=== PATIENT | female | born 1990 | race Caucasian/White ===

== ENCOUNTER 2018-01-30 20:36 | Emergency (ER) | payer SELFPAY ==
[2018-01-30 20:57] VITALS: TEMP 98.2; O2SAT 100
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
[2018-01-30 23:08] VITALS: BP 108/72
== END 2018-01-30 23:10 | disposition home or self-care (01) ==
LOC: ER 20:36
DX: S00.93XA Contusion of unspecified part of head, initial encounter (principal); S10.93XA Contusion of unspecified part of neck, initial encounter; S00.11XA Contusion of right eyelid and periocular area, initial encounter; S00.12XA Contusion of left eyelid and periocular area, initial encounter; S90.411A Abrasion, right great toe, initial encounter; R51 Headache; M54.2 Cervicalgia; Y04.0XXA Assault by unarmed brawl or fight, initial encounter; Y07.03 Male partner, perpetrator of maltreatment and neglect

== ENCOUNTER 2018-02-04 10:09 | Emergency (ER) | payer SELFPAY ==
--- NOTE | 2018-02-04 10:40 | ED.PDOC ---
History of Present Illness - General Chief Complaint: Dental/Mouth Stated Complaint: dental pain Time Seen by Provider: 02/04/18 10:37 Source: patient Exam Limitations: no limitations - History of Present Illness Initial Comments: Jennifer Mahmood 28 y/o female came to er with dental pain andsome swelling upper cheeks the last 3 days.No fever no double or blurry vision.No chronic medical problem.Has Dentist appointment Timing/Duration: gradual Severity: moderate EENT Location: dental Prearrival Treatment: no prearrival treatment Presenting Symptoms: see hpi Improving Factors: nothing Worsening Factors: eating Associated Symptoms: facial pain/swelling Allergies/Adverse Reactions: Allergies NO KNOWN ALLERGY Allergy (Verified 02/16/15 12:13) Home Medications: Ambulatory Orders Acetamin W/Cod #3 Tab [Tylenol w/CODEINE #3] 1 ea PO TID PRN #10 tab 02/04/18 Clindamycin HCl 150 mg PO TID 10 Days #30 cap 02/04/18 Review of Systems - Review of Systems Constitutional: States: no symptoms reported EENTM: States: see HPI Respiratory: States: no symptoms reported Cardiology: States: no symptoms reported Gastrointestinal/Abdominal: States: no symptoms reported Genitourinary: States: no symptoms reported Past Medical History (General) - Patient Medical History Hx Seizures: No Hx Stroke: No Hx Dementia: No Hx Asthma: No Hx of COPD: No Hx Cardiac Disorders: No Hx Congestive Heart Failure: No Hx Pacemaker: No Hx Hypertension: No Hx Thyroid Disease: No Hx Diabetes: No Hx Gastroesophageal Reflux: No Hx Renal Disease: No Hx Cancer: No Hx of HIV: No Hx Hepatitis C: No Hx MRSA: No Surgical History: appendectomy - Vaccination History Hx Tetanus, Diphtheria Vaccination: No Hx Influenza Vaccination: No Hx Pneumococcal Vaccination: No Immunizations Up to Date: No - Social History Hx Tobacco Use: Yes Hx Chewing Tobacco Use: No Hx Alcohol Use: No Hx Substance Use: No Hx Substance Use Treatment: No Hx Depression: No Hx Physical Abuse: No Hx Emotional Abuse: No Hx Suspected Abuse: No - Female History Patient is a Female of Child Bearing Age (10 -59 yrs old): Yes Hx Last Menstrual Period: 01/01/18 Patient : No - Triage Comment ED Triage Comment: dental pain Family Medical History - Family History Mother Family History: Unknown Hx Family Asthma: No Hx Family Congestive Heart Failure: No Hx Family Hypertension: No Hx Family Stroke: No Hx Cardiac Disease: No Hx Family Diabetes: No Physical Exam - Physical Exam General Appearance: Alert, Comfortable, No apparent distress Eye Exam: bilateral normal Ear Exam: bilateral ear: auricle normal, canal normal, TM normal Nasal Exam: normal inspection Throat Exam: pharynx normal, other - decayed tooth right first upper molar,w/ gum swelling and tenderness around decayed tooth Progress - Progress Progress: 02/04/18 10:42 Vital Signs - 8 hr 02/04/18 10:24 Temperature 97.5 F L Pulse Rate [ 100 H Brachial] Respiratory 16 Rate Blood Pressure 117/79 [Left Arm] O2 Sat by Pulse 100 Oximetry Departure - Departure Clinical Impression: Dental abscess, Dental caries extending into pulp Time of Disposition: 10:46 Disposition: Discharge to Home or Self Care Condition: Good Departure Forms: ED Discharge - Pt. Copy, Patient Portal Self Enrollment Instructions: DI for Dental Pain, Tooth Decay, Adult, Tooth Decay, Adult (DC) Diet: other - Soft Diet until better Prescriptions: Acetamin W/Cod #3 Tab [Tylenol w/CODEINE #3] 1 ea PO TID PRN #10 tab PRN Reason: Pain Clindamycin HCl 150 mg PO TID 10 Days #30 cap Home Medications: Ambulatory Orders Acetamin W/Cod #3 Tab [Tylenol w/CODEINE #3] 1 ea PO TID PRN #10 tab 02/04/18 Clindamycin HCl 150 mg PO TID 10 Days #30 cap 02/04/18 Additional Instructions: Keep appointment with Dentist on Wednesday.
[2018-02-04] MEDS ORDERED: CLINDAMYCIN HCL CAP 150 MG CAP PO ONE (10:42)
[2018-02-04] MEDS ORDERED: CLINDAMYCIN PHOSPHATE 150 MG/ML VIAL IM ONE (10:42)
[2018-02-04 11:11] VITALS: BP 119/85; TEMP 97.9; O2SAT 98
== END 2018-02-04 11:05 | disposition home or self-care (01) ==
LOC: ER 10:09 → EDSTATUS 10:10 → ER 11:05
DX: K04.7 Periapical abscess without sinus (principal); K02.9 Dental caries, unspecified; Z87.891 Personal history of nicotine dependence

== ENCOUNTER 2018-05-07 19:46 | Emergency (ER) | payer OTHER ==
[2018-05-07 20:02] VITALS: TEMP 99.7
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
[2018-05-07] MEDS ORDERED: ONDANSETRON INJ 4 MG/2 ML VIAL IV ONE (20:42)
[2018-05-07 21:05] VITALS: O2SAT 100
[2018-05-07] MEDS ORDERED: SODIUM CHLORIDE 0.9% 1000ML 1,000 ML IVS ONE (21:12)
[2018-05-07] MEDS ORDERED: PROMETHAZINE HCL INJ 25 MG in SODIUM CHLORIDE 0.9% 50ML 50 ML IVPB ONE (23:02)
[2018-05-07] MEDS ORDERED: SULFA/TRIMETH 800/160 (DS) TAB 1 EA TAB PO ONE (23:04)
[2018-05-07] MEDS ORDERED: PROMETHAZINE HCL INJ 25 MG/ML VIAL ONE (23:09)
[2018-05-07] MEDS ORDERED: SODIUM CHLORIDE 0.9% 50ML 50 ML ONE (23:10)
[2018-05-07 23:31] VITALS: BP 123/76
== END 2018-05-07 23:31 | disposition home or self-care (01) ==
LOC: ER 19:46
DX: K52.9 Noninfective gastroenteritis and colitis, unspecified (principal); N39.0 Urinary tract infection, site not specified; Z90.49 Acquired absence of other specified parts of digestive tract; Z87.891 Personal history of nicotine dependence
CPT/HCPCS: 80053; 80307; 81001; 81025; 83690; 85007; 85025; 87086; A4216; J2405; J2550; J7030

== ENCOUNTER 2020-03-01 07:12 | Emergency (ER) | payer SELFPAY ==
[2020-03-01] MEDS ORDERED: SODIUM CHLORIDE 0.9% 1000ML 1,000 ML IVS ONE (07:15)
[2020-03-01] MEDS ORDERED: ONDANSETRON INJ 4 MG/2 ML VIAL IV ONE (07:15)
--- NOTE | 2020-03-01 07:17 | ED.PDOC ---
History of Present Illness - General Time Seen by Provider: 03/01/20 07:12 Information Source: patient, RN notes reviewed, Vital Signs reviewed, old records Exam Limitations: intoxication - History of Present Illness Initial Comments: 30 yo F comes in with midepigastric abdominal pain n/v. states she started vomiting several hours ago. Drank 3-4 tequila shots last night, also smoked marijuana. no diarrhea, dysuria. not had similar episodes prior. Abdominal Pain Onset Location: epigastric Pain Radiation: no radiation Review of Systems - Review of Systems Constitutional: Denies: chills, fever EENTM: Denies: blurred vision, throat pain, mouth pain Respiratory: Denies: cough, short of breath Cardiology: Denies: chest pain, palpitations Gastrointestinal/Abdominal: States: abdominal pain, nausea, vomiting. Denies: diarrhea Genitourinary: Denies: dysuria, frequency, hematuria Musculoskeletal: Denies: back pain, muscle pain Skin: Denies: rash Neurological: Denies: headache, numbness, paresthesia, tremors, weakness Endocrine: Denies: unexplained weight gain, unexplained weight loss Hematologic/Lymphatic: Denies: blood clots, easy bleeding, easy bruising Past Medical History (General) - Patient Medical History Hx Seizures: No Hx Stroke: No Hx Dementia: No Hx Asthma: No Hx of COPD: No Hx Cardiac Disorders: No Hx Congestive Heart Failure: No Hx Pacemaker: No Hx Hypertension: No Hx Thyroid Disease: No Hx Diabetes: No Hx Gastroesophageal Reflux: No Hx Renal Disease: No Hx Cancer: No Hx of HIV: No Hx Hepatitis C: No Hx MRSA: No Surgical History: appendectomy - Vaccination History Hx Tetanus, Diphtheria Vaccination: No Hx Influenza Vaccination: Yes Hx Pneumococcal Vaccination: No - Social History Hx Tobacco Use: Yes Hx Chewing Tobacco Use: No Hx Alcohol Use: No Hx Substance Use: No Hx Substance Use Treatment: No Hx Depression: No Hx Physical Abuse: No Hx Emotional Abuse: No Hx Suspected Abuse: No - Female History Hx Last Menstrual Period: 12/01/19 Patient : No Family Medical History - Family History Mother Family History: Unknown Hx Family Asthma: No Hx Family Congestive Heart Failure: No Hx Family Hypertension: No Hx Family Stroke: No Hx Cardiac Disease: No Hx Family Diabetes: No Physical Exam - Physical Exam General Appearance: Alert, Comfortable, No apparent distress, Unkempt, Well Developed, Well Hydrated, Well Nourished Eyes, Ears, Nose, Throat Exam: PERRL/EOMI, normal ENT inspection, TMs normal Neck: non-tender, full range of motion, supple, normal inspection Respiratory: chest non-tender, lungs clear, normal breath sounds, no respiratory distress, no accessory muscle use Cardiovascular/Chest: normal peripheral pulses, regular rate, rhythm, no edema, no gallop, no JVD, no murmur Peripheral Pulses: 2+ Gastrointestinal/Abdominal: normal bowel sounds, non tender, soft, no organomegaly, no pulsatile mass Rectal Exam: deferred Back Exam: normal inspection, no CVA tenderness, no vertebral tenderness Extremity: normal range of motion, non-tender, normal inspection, no pedal edema, no calf tenderness, normal capillary refill Neurologic: occ ther II-XII nml as tested, no motor/sensory deficits, alert, normal mood/affect, oriented x 3 Skin Exam: normal color, warm/dry Progress - Progress Progress: 03/01/20 08:25 Partial ddx: CHS, pancreatitis, gallstones, gastritis, ETOH intoxication, substance misuse. patient notes she Smokes weed 2-3x a week. patient given IVF and zofran. grandmother who lives with patient comes into ER 30 minutes after patient with AMS and abdominal pain. Patient tested for CO, which was unremarkable. CT head: no acute pathology, CT abd/pelvis: no acute pathology noted. 03/01/20 09:46 While asleep patients heart rate drops to mid to low 40s, while awake 50-70. grandmother has covid, patient is negative for both flu and covid. - Results/Orders Results/Orders: The data reviewed when caring for this patient included: nurse notes, prior records, etc. The history and assessments from nurses notes were reviewed and considered, and the patient's home medication list was also reviewed and considered. My assessment and the results of testing completed here in the ED were discussed with the patient/family. All questions were answered, and they express understanding of my assessment and the plan. They have been instructed to return if their symptoms worsen, and have been asked to follow up with their primary care physician to recheck today's presenting complaint. Strict return precautions given. I have reviewed medication, benefits, alternatives and side effects. Patient decided to proceed with medication. Katherine Urias DO #[id number] 03/01/20 07:50 Hold Metformin x 48Hrs [id number] 03/01/20 08:15 EKG STAT Laboratory Results WBC 8.2 K/mm3 (4.8-10.8) 03/01/20 07:25 RBC 4.04 M/mm3 (4.20-5.40) L 03/01/20 07:25 Hgb 12.5 gm/dL (12.0-16.0) 03/01/20 07:25 Hct 36.8 % (36.0-47.0) 03/01/20 07:25 MCV 91.2 fl (81.0-99.0) 03/01/20 07:25 MCH 30.9 pg (27.0-31.0) 03/01/20 07:25 MCHC 33.9 g/dL (33.0-37.0) 03/01/20 07:25 RDW 13.7 % (11.5-14.5) 03/01/20 07:25 Plt Count 288 K/mm3 (130-400) 03/01/20 07:25 MPV 8.1 fl (7.40-10.4) 03/01/20 07:25 Absolute Neuts (auto) 6.30 K/uL (1.8-6.8) 03/01/20 07:25 Absolute Lymphs (auto) 1.30 K/uL (1.0-3.4) 03/01/20 07:25 Absolute Monos (auto) 0.60 K/uL (0.2-0.8) 03/01/20 07:25 Absolute Eos (auto) 0.00 K/uL (0.0-0.4) 03/01/20 07:25 Absolute Basos (auto) 0.00 K/uL (0.0-0.1) 03/01/20 07:25 Neutrophils % 76.7 % (42.0-78.0) 03/01/20 07:25 Lymphocytes % 15.8 % (20.0-50.0) L 03/01/20 07:25 Monocytes % 6.8 % (2.0-9.0) 03/01/20 07:25 Eosinophils % 0.4 % (1.0-5.0) L 03/01/20 07:25 Basophils % 0.3 % (0.0-2.0) 03/01/20 07:25 pCO2 34 mmHg (32-45) 03/01/20 08:47 pO2 104 mmHg (83-108) 03/01/20 08:47 HCO3 21.7 mmol/L 03/01/20 08:47 ABG pH 7.418 (7.35-7.45) 03/01/20 08:47 ABG O2 Saturation 98.4 % (95.0-99.0) 03/01/20 08:47 ABG Base Excess -2.2 mmol/L 03/01/20 08:47 ABG Deoxyhemoglobin 1.6 % (0.0-5.0) 03/01/20 08:47 Oxyhemoglobin % 96.7 % (94.0-98.0) 03/01/20 08:47 Carboxyhemoglobin % 1.1 % (0.5-1.5) 03/01/20 08:47 Methemoglobin % Sat 0.6 % (0.0-1.5) 03/01/20 08:47 Calc Total Hemoglobin 12.5 g/dL (12.0-16.0) 03/01/20 08:47 Sodium 139 mmol/L (135-145) 03/01/20 07:25 Potassium 3.3 mmol/L (3.6-5.0) L 03/01/20 07:25 Chloride 104 mmol/L (101-111) 03/01/20 07:25 Carbon Dioxide 20 mmol/L (21-31) L 03/01/20 07:25 Anion Gap 18.3 (12-18) H 03/01/20 07:25 BUN 11 mg/dL (7-18) 03/01/20 07:25 Creatinine 0.67 mg/dL (0.6-1.3) 03/01/20 07:25 BUN/Creatinine Ratio 16.4 (10-20) 03/01/20 07:25 Random Glucose 137 mg/dL (70-105) H 03/01/20 07:25 Serum Osmolality 279.1 mOsm/L (275-295) 03/01/20 07:25 Calcium 9.5 mg/dL (8.4-10.2) 03/01/20 07:25 Total Bilirubin 0.8 mg/dL (0.2-1.0) 03/01/20 07:25 AST 21 IU/L (10-42) 03/01/20 07:25 ALT 19 IU/L (10-60) 03/01/20 07:25 Alkaline Phosphatase 77 IU/L (42-121) 03/01/20 07:25 Serum Total Protein 8.7 gm/dL (6.4-8.2) H 03/01/20 07:25 Albumin 4.7 g/dl (3.2-5.5) 03/01/20 07:25 Globulin 4.0 gm/dL (2.3-3.5) H 03/01/20 07:25 Albumin/Globulin Ratio 1.2 (1.1-1.9) 03/01/20 07:25 Lipase 24 U/L (22-51) 03/01/20 07:25 TSH 1.41 uIU/mL (0.34-5.60) 03/01/20 07:55 Serum HCG, Qual Negative (NEGATIVE) 03/01/20 07:25 Urine Color Yellow (Yellow) 03/01/20 09:35 Urine Appearance Clear (Clear) 03/01/20 09:35 Urine pH 8.5 (4.5-7.8) H 03/01/20 09:35 Ur Specific [place] 1.015 (1.005-1.030) 03/01/20 09:35 Urine Protein Negative mg/dL 03/01/20 09:35 Urine Glucose (UA) Negative mg/dL (Negative) 03/01/20 09:35 Urine Ketones 80 mg/dL (NEGATIVE) H 03/01/20 09:35 Urine Blood Trace-lysed (Negative) H 03/01/20 09:35 Urine Nitrite Negative 03/01/20 09:35 Urine Bilirubin Negative (NEGATIVE) 03/01/20 09:35 Urine Urobilinogen 0.2 mg/dL (0.2-1.0) 03/01/20 09:35 Ur Leukocyte Esterase Negative (Negative) 03/01/20 09:35 Urine RBC 0-1 /hpf 03/01/20 09:35 Urine WBC 1-3 /hpf 03/01/20 09:35 Ur Epithelial Cells 5-10 /hpf 03/01/20 09:35 Urine Bacteria Rare 03/01/20 09:35 Urine Opiates Screen Negative ng/mL (1999) 03/01/20 09:35 Urine Barbiturates Negative ng/mL (200) 03/01/20 09:35 Ur Phencyclidine Scrn Negative ng/mL (25) 03/01/20 09:35 U Amphetamin/Meth Scrn Negative ng/mL (1000) 03/01/20 09:35 U Benzodiazepines Scrn Negative ng/mL (200) 03/01/20 09:35 U Cocaine Metab Screen Negative ng/mL (300) 03/01/20 09:35 U Cannabinoids Screen Positive ng/mL (50) H 03/01/20 09:35 Ethyl Alcohol < 5.10 mg/dL (0-79) 03/01/20 07:25 - EKG/XRAY/CT EKG: Siva, Sinus, no ST T wave changes Comments: normal intervals, HR 43, no prior for comparison. Departure - Departure Clinical Impression: Abdominal pain Qualifiers: Abdominal location: epigastric Qualified Code(s): R10.13 - Epigastric pain ICD-10 Supporting Text: asymptomatic bradycardia Time of Disposition: 09:45 Disposition: Discharge to Home or Self Care Instructions: Acute Abdomen (Belly Pain), Adult (DC), Nausea and Vomiting, Adult (DC) Diet: other - bland diet Activity: increase activity as tolerated Prescriptions: Promethazine HCl 25 mg AL TID PRN #15 sup PRN Reason: Vomiting Ondansetron HCl [Zofran] 4 mg PO TID PRN #15 tab PRN Reason: Vomiting Home Medications: Ambulatory Orders Ondansetron HCl [Zofran] 4 mg PO TID PRN #15 tab 03/01/20 Promethazine HCl 25 mg AL TID PRN #15 sup 03/01/20
[2020-03-01] MEDS ORDERED: KETOROLAC TROMETHAMINE INJ 30 MG/ML VIAL IV ONE (07:53)
[2020-03-01] MEDS ORDERED: PROMETHAZINE HCL INJ 12.5 MG in SODIUM CHLORIDE 0.9% 50ML 50 ML IVPB ONE (08:34)
--- NOTE | 2020-03-01 08:40 | CT ---
EXAM DESCRIPTION: Head CLINICAL HISTORY: ams COMPARISON: January 30, 2018 TECHNIQUE: Noncontrast transaxial CT images of the head are obtained from base to vertex. This exam was performed according to our departmental dose-optimization program, which includes automated exposure control, adjustment of the mA and/or kV according to patient size and/or use of iterative reconstruction technique. FINDINGS: The midline structures are not displaced. The sulci are age appropriate. The lateral, third, and fourth ventricles are normal in size, shape, and anatomic positioning. There is no evidence of mass, mass effect, hydrocephalus, or acute intracranial hemorrhage. No abnormal extra axial fluid collections are seen. Normal callejas-white differentiation is seen. The visualized bone windows show no depressed skull fracture or significant abnormality. The visualized paranasal sinuses and mastoid air cells are clear. IMPRESSION: 1. No acute abnormality is seen on noncontrast CT of the head. Electronically signed by: Gokul German MD 03/01/2020 8:38 AM [employer]
--- NOTE | 2020-03-01 08:44 | CT ---
EXAM DESCRIPTION: Abdomen/Pelvis w/Contrast CLINICAL HISTORY: abd pain COMPARISON: None. TECHNIQUE: Postcontrast CT images of the abdomen and pelvis are obtained using standard imaging protocol. This exam was performed according to our departmental dose-optimization program, which includes automated exposure control, adjustment of the mA and/or kV according to patient size and/or use of iterative reconstruction technique . FINDINGS: Visualized lung bases are unremarkable. The liver, spleen, pancreas, adrenal glands, and contracted gallbladder are unremarkable. Abdominal vasculature is within normal limits. Normal cortical enhancement. No obvious nephrolithiasis. No ureteral constipation or obstruction. Urinary bladder is contracted and unremarkable. The uterus is unremarkable. 2.6 cm fluid attenuation cyst of the left ovary. No further imaging follow-up is recommended. The right ovary is not well identified. Surgical suture line at the base of the cecum is seen suggesting prior appendectomy. Small hiatal hernia. Stomach is poorly distended but otherwise unremarkable. No small bowel obstruction or bowel wall thickening. Colon is unremarkable. No significant diverticular disease. Horizontal positioning of the upper sacrum is seen without spondylolysis or spondylolisthesis. Mild facet arthropathy at L5-S1. IMPRESSION: No acute findings on CT of the abdomen and pelvis. Small hiatal hernia is suspected. Electronically signed by: Gokul German MD 03/01/2020 8:43 AM [employer]
[2020-03-01 10:32] VITALS: O2SAT 99
[2020-03-01 10:34] VITALS: BP 121/76
[2020-03-01 10:36] VITALS: TEMP 97.6
== END 2020-03-01 10:25 | disposition home or self-care (01) ==
LOC: ER 07:12
DX: R10.13 Epigastric pain (principal); R00.1 Bradycardia, unspecified; R11.2 Nausea with vomiting, unspecified; F12.90 Cannabis use, unspecified, uncomplicated; Z90.49 Acquired absence of other specified parts of digestive tract; Z87.891 Personal history of nicotine dependence; Z20.828 Contact with and (suspected) exposure to other viral communicable diseases
CPT/HCPCS: 36415; 36600; 70450; 74177; 80053; 80307; 80320; 81001; 82803; 82805; 83690; 84443; 84703; 85025; 87502; 87635; 93005; A4216; J1885; J2405; J2550; J7030